=== PATIENT | male | born 1960 | race Hispanic/Latino ===

== ENCOUNTER 2016-10-25 07:32 | Day surgery (SDC) | payer MEDICARE ==
[2016-10-22 15:11] VITALS: BMI 32.8
[2016-10-25 08:05] LABS: BASO # 0.06 K/mm3 (0.0-2.0); BASO % 1.6 % (0.0-3.0); EOS # 0.2 (0.0-0.7); GRAN % 52.9 % (50.0-68.0); HEMOGLOBIN 15.3 gm/dL (14.0-18.0); LYMPH # 1.1 (1.2-3.4); LYMPH % 29.9 % (22.0-35.0); MEAN CELL VOLUME 88.3 fL (80.0-105.0); MEAN CORPUSCULAR HEMOGLOBIN 31.3 pg (25.0-35.0); MEAN CORPUSCULAR HGB CONC 35.4 g/dl (31.0-37.0); MEAN PLATELET VOLUME 9.9 fl (7.0-11.0); MONO # 0.4 (0.1-0.6); MONO % 11.6 % (1.0-6.0); PLATELET COUNT 248 10^3/uL (120.0-450.0); RBC 4.89 10^6/uL (3.5-6.1); WHITE BLOOD COUNT 3.8 10^3/ul (4.5-11.0)
[2016-10-25 08:17] LABS: PARTIAL THROMBOPLASTIN TIME 26.2 Seconds (23.7-30.8); PROTHROMBIN TIME 10.8 Seconds (9.9-11.8)
[2016-10-25 08:19] LABS: BLOOD UREA NITROGEN 19 mg/dL (7-21); CALCIUM 9.3 mg/dL (8.4-10.5); GFR AFRICAN-AMERICAN > 60; GFR NON-AFRICAN AMERICAN > 60
[2016-10-25] MEDS ORDERED: Lidocaine 2% Inj (20ml) ONE (10:18)
[2016-10-25] MEDS ORDERED: Midazolam 2 MG/2 ML VIAL ONE ×2 (10:27→10:45)
[2016-10-25] MEDS ORDERED: Sodium Chloride 0.9% 1,000 ML IV SCH (11:30)
--- NOTE | 2016-10-25 13:07 | CP.PCM.PN ---
Subjective - Date & Time of Evaluation Date of Evaluation: 10/25/16 Time of Evaluation: 12:05 - Subjective Subjective: Patient seen at the request of Dr Coy for his c/o chest pain which started after he had a cardiac cath today. He describes the pain as a sharp left sided chest pain that is continuous, non radiating,not associated with any other symptoms like SOB,nausea,vomiting, dizziness sweating or abdominal pain.The pain is not worse on deep breathing. He admits to having a little headache,but denies any calf pain or cough. VS are stable. BP 123/60 HR 68 RR18 o2 sat 96% PMH:Hypertension,Arthritis,Colon Ca with mets to lungs and liver,CAD,recent abnormal stress test. Objective - Medications Medications: Current Medications Sodium Chloride (Sodium Chloride 0.9%) 1,000 mls @ 100 mls/hr IV .Q10H ELICIA Stop: 10/25/16 17:00 - Labs Labs: 10/25/16 07:45 10/25/16 07:45 PT 10.8 Seconds (9.9-11.8) 10/25/16 07:45 INR 1.00 (0.93-1.08) 10/25/16 07:45 APTT 26.2 Seconds (23.7-30.8) 10/25/16 07:45 - Constitutional Appears: No Acute Distress - Head Exam Head Exam: ATRAUMATIC - ENT Exam ENT Exam: Mucous Membranes Moist - Neck Exam Neck Exam: Normal Inspection - Respiratory Exam Respiratory Exam: Clear to Ausculation Bilateral. absent: Chest Wall Tenderness , Respiratory Distress - Cardiovascular Exam Cardiovascular Exam: REGULAR RHYTHM, +S1, +S2 - GI/Abdominal Exam GI & Abdominal Exam: Soft. absent: Tenderness, Normal Bowel Sounds Additional comments: dressing noted in the region of the R groin - Neurological Exam Neurological Exam: Alert, Oriented x3 - Psychiatric Exam Psychiatric exam: Normal Affect - Skin Skin Exam: Dry, Warm Assessment and Plan - Assessment and Plan (Free Text) Assessment: S/P Cardiac Cath Chest Pain Plan: EKG was just done.It shows NSR,IRBBB,non specific ST-T changes.These findings are basically the same as prior EKG from 2013. Discussed case with Dr Coy.He has already ordered Protonix for patient,will see response to that.
--- NOTE | 2016-10-25 13:18 | CARD ---
APPROVED REPORT EKG Measurement Heart [id number] <Conclusion> Normal sinus rhythm Incomplete right bundle branch block Nonspecific T wave abnormality Abnormal ECG
--- NOTE | 2016-10-25 18:41 | CARDCATH ---
PROCEDURE DATE: 10/25/2016 HISTORY: The patient is a 56-year-old male who presents with an abnormal stress test. The patient underwent a cardiac workup after a syncopal episode. He suffers from documented coronary artery disease in the past as well as hypertension and hypercholesterolemia. Because of this, a cardiac catheterization was recommended. PROCEDURE: Left heart catheterization with coronary angiography and left ventriculogram. The right femoral artery was cannulated with a 6-[place] sheath. There were no complications. The findings on catheterization revealed the left ventricle that contracted normally. Estimated ejection fraction is 60%. There is no gradient across the aortic valve. His coronary anatomy revealed a right dominant circulation. The RCA revealed diffuse atherosclerosis without critical lesions. The left main artery was unremarkable. The LAD revealed diffuse atherosclerosis with a 50% stenoses in the distal apical segment of the LAD. The diagonal vessels were free of significant disease. The circumflex artery consisted a large obtuse marginal branch which was free of significant disease. Angio-Seal was used to close the femoral artery site. The patient tolerated the procedure well. In summary, the procedure revealed a 50% stenosis in the distal portion of the LAD which is explained to the abnormal stress test. LV function is normal. Given these findings, the patient's coronary anatomy has not changed. We will continue on aspirin, statin therapy and continue cardiac risk reduction program. Marco A Coy MD
== END 2016-10-25 16:36 | disposition home or self-care (01) ==
LOC: CATH 07:32
PROVIDERS: ATTEND Internal Medicine Cardiovascular Disease
DX: I25.10 Atherosclerotic heart disease of native coronary artery without angina pectoris (principal); I10 Essential (primary) hypertension; E78.00 Pure hypercholesterolemia, unspecified; J44.9 Chronic obstructive pulmonary disease, unspecified; C78.00 Secondary malignant neoplasm of unspecified lung; C78.7 Secondary malignant neoplasm of liver and intrahepatic bile duct; Z85.038 Personal history of other malignant neoplasm of large intestine
CPT/HCPCS: 36415; 80048; 85025; 85610; 85730; 86850; 86900; 93005; 93458; 99152; C1769; C2629; C9113; J1644; J2250; J3010; J7030; J7040; Q9967

== ENCOUNTER 2017-12-16 07:51 | Day surgery (SDC) | payer MEDICARE ==
[2017-12-14 12:32] VITALS: BMI 33.0
[2017-12-16] MEDS ORDERED: Propofol 10 mg/ml Inj (20 ML) ONE (10:12)
[2017-12-16] MEDS ORDERED: Sodium Chloride 0.9% 1,000 ML IV SCH (11:00)
[2017-12-16 11:17] VITALS: PULSE 58
[2017-12-16 13:54] VITALS: BP 132/58; RESP 16; TEMP 97.6; O2SAT 94
== END 2017-12-16 12:23 | disposition home or self-care (01) ==
LOC: ENDO 07:51
PROVIDERS: ATTEND Internal Medicine Gastroenterology
DX: Z12.11 Encounter for screening for malignant neoplasm of colon (principal); Z85.048 Personal history of other malignant neoplasm of rectum, rectosigmoid junction, and anus; K64.8 Other hemorrhoids
CPT/HCPCS: 45378; J2704; J7030; J7040